=== PATIENT | female | born 1940 | race American Indian/Alaskan Native ===

== ENCOUNTER 2020-06-08 09:24 | Emergency (ER) | payer MEDICARE ==
[2020-06-08 11:19] LABS: Basophils % (Auto) 0.7 % (0.0-1.8); Eosinophils # (Auto) 0.1 K/mm3 (0.0-0.4); Eosinophils % (Auto) 2.3 % (0.0-4.3); Hemoglobin 13.2 gm/dl (10.1-14.3); Lymphocytes # (Auto) 1.1 K/mm3 (1.2-5.4); Lymphocytes % (Auto) 28.5 % (13.4-35.0); Mean Corpuscular HGB Conc 33 % (30-34); Mean Corpuscular Volume 88 fl (79-97); Monocytes # (Auto) 0.3 K/mm3 (0.0-0.8); Monocytes % (Auto) 8.9 % (0.0-7.3); Platelet Count 220 K/mm3 (140-440); Red Blood Count 4.53 M/mm3 (3.65-5.03); Red Cell Distribution Width 14.5 % (13.2-15.2)
[2020-06-08] MEDS ORDERED: cloNIDine 0.2 MG TAB PO ONE (11:46)
--- NOTE | 2020-06-08 11:55 | Emergency Department Report ---
ED General Adult HPI - General Chief complaint: High BP Stated complaint: HBP/DIZZY Time Seen by Provider: 06/08/20 11:12 Source: patient, family Mode of arrival: Wheelchair Limitations: Altered Mental Status - History of Present Illness Initial comments: 79-year-old female with a past medical history of Alzheimer's dementia and hypertension presents to the hospital with her daughter for uncontrolled blood pressure. Patient lives with her daughter and daughter was able to provide history of present illness due to patient's underlying dementia. Patient is alert however, agitated insisting her name is Do Gutierrez. She denies any physical complaints and states she feels fine. Daughter states that they went to the [facility] this morning so that Ms. Lei could receive her monthly Invega shot. She also has been more agitated and belligerent lately and therefore additional p.o. Haldol and Cogentin was prescribed by the treating mental health provider. During her triage it was noted that her blood pressure was elevated and therefore it was advised that patient come to the ER for evaluation. Patient has been off of blood pressure medications for approximately 6 months but this is the highest her blood pre ssure has been during this time. Other than psychiatric issues daughter confirms patient is currently at her baseline. Severity scale (0 -10): 0 - Related Data Home Medications Medication Instructions Recorded Confirmed Last Taken LORazepam [Ativan] 0.5 mg PO Q6H PRN 05/27/14 09/17/14 Unknown amLODIPine [Norvasc] 5 mg PO DAILY 05/27/14 09/17/14 Unknown risperiDONE [RisperDAL] 1 mg PO DAILY 05/27/14 09/17/14 Unknown risperiDONE [Risperdal] 2 mg PO QPM 05/27/14 09/17/14 Unknown Previous Rx's Medication Instructions Recorded Last Taken Type Amlodipine Besylate [Norvasc] 10 mg PO DAILY #30 tablet 06/08/20 Unknown Rx Allergies Allergy/AdvReac Type Severity Reaction Status Date / Time No Known Allergies Allergy Verified 10/09/13 11:39 ED Review of Systems ROS: Stated complaint: HBP/DIZZY Other details as noted in HPI Comment: All other systems reviewed and negative ED Past Medical Hx - Past Medical History Previous Medical History?: Yes Hx Hypertension: Yes Hx Psychiatric Treatment: Yes Additional medical history: Alzheimer's, appendectomey,left knee and hip replacement - Surgical History Past Surgical History?: Yes Hx Appendectomy: Yes Additional Surgical History: left knee and hip - Social History Smoking Status: Current Every Day Smoker - Medications Home Medications: Home Medications Medication Instructions Recorded Confirmed Last Taken Type LORazepam [Ativan] 0.5 mg PO Q6H PRN 05/27/14 09/17/14 Unknown History amLODIPine [Norvasc] 5 mg PO DAILY 05/27/14 09/17/14 Unknown History risperiDONE [RisperDAL] 1 mg PO DAILY 05/27/14 09/17/14 Unknown History risperiDONE [Risperdal] 2 mg PO QPM 05/27/14 09/17/14 Unknown History Amlodipine Besylate [Norvasc] 10 mg PO DAILY #30 tablet 06/08/20 Unknown Rx ED Physical Exam - General Limitations: Altered Mental Status - Other Other exam information: General: No acute distress Head: Atraumatic Eyes: normal appearance ENT: Moist mucous membranes Neck: Normal appearance, no midline tenderness Chest: Clear to auscultation bilaterally CV: Regular rate and rhythm Abdomen: Soft, normal bowel sounds, nontender, nondistended, no rebound or guarding Back: Normal inspection Extremity: Normal inspection, full range of motion Neuro: Alert, no facial asymmetry, speech clear, no gross motor sensory deficit Psych: Appropriate behavior Skin: No rash ED Course Vital Signs 06/08/20 06/08/20 06/08/20 09:28 11:24 11:26 Temperature 97.8 F Pulse Rate 100 H 88 Respiratory 18 17 18 Rate Blood Pressure Blood Pressure 227/117 [Left] Blood Pressure 217/126 227/117 [Right] O2 Sat by Pulse 100 98 Oximetry 06/08/20 06/08/20 06/08/20 11:29 11:30 11:46 Temperature Pulse Rate 88 83 Respiratory 19 18 19 Rate Blood Pressure Blood Pressure [Left] Blood Pressure [Right] O2 Sat by Pulse 99 98 98 Oximetry 06/08/20 06/08/20 06/08/20 11:58 12:00 12:15 Temperature Pulse Rate 88 83 75 Respiratory 13 17 Rate Blood Pressure 204/117 212/110 222/109 Blood Pressure [Left] Blood Pressure [Right] O2 Sat by Pulse 98 99 Oximetry 06/08/20 06/08/20 06/08/20 12:38 12:46 13:00 Temperature Pulse Rate 79 70 72 Respiratory 19 20 20 Rate Blood Pressure 222/109 175/100 150/92 Blood Pressure [Left] Blood Pressure [Right] O2 Sat by Pulse 100 100 Oximetry 06/08/20 06/08/20 06/08/20 13:15 13:53 14:00 Temperature Pulse Rate 69 73 88 Respiratory 21 19 15 Rate Blood Pressure 146/86 154/75 Blood Pressure 154/75 [Left] Blood Pressure [Right] O2 Sat by Pulse 100 99 Oximetry 06/08/20 06/08/20 06/08/20 14:30 14:46 15:00 Temperature Pulse Rate 69 67 Respiratory 18 15 Rate Blood Pressure 154/75 172/87 163/87 Blood Pressure [Left] Blood Pressure [Right] O2 Sat by Pulse 80 L Oximetry 06/08/20 06/08/20 15:16 15:30 Temperature Pulse Rate 69 69 Respiratory 17 21 Rate Blood Pressure 130/85 142/86 Blood Pressure [Left] Blood Pressure [Right] O2 Sat by Pulse Oximetry ED Medical Decision Making - Lab Data Result diagrams: 06/08/20 10:57 06/08/20 15:15 Lab Results 06/08/20 06/08/20 06/08/20 Range/Units 10:57 10:57 15:15 WBC 3.8 L (4.5-11.0) K/mm3 RBC 4.53 (3.65-5.03) M/mm3 Hgb 13.2 (10.1-14.3) gm/dl Hct 40.0 (30.3-42.9) % MCV 88 (79-97) fl MCH 29 (28-32) pg MCHC 33 (30-34) % RDW 14.5 (13.2-15.2) % Plt Count 220 (140-440) K/mm3 Lymph % (Auto) 28.5 (13.4-35.0) % [place] % (Auto) 8.9 H (0.0-7.3) % Eos % (Auto) 2.3 (0.0-4.3) % Baso % (Auto) 0.7 (0.0-1.8) % Lymph # (Auto) 1.1 L (1.2-5.4) K/mm3 [place] # (Auto) 0.3 (0.0-0.8) K/mm3 Eos # (Auto) 0.1 (0.0-0.4) K/mm3 Baso # (Auto) 0.0 (0.0-0.1) K/mm3 Seg Neutrophils % 59.6 (40.0-70.0) % Seg Neutrophils # 2.2 (1.8-7.7) K/mm3 Sodium TNR 141 Potassium TNR 3.5 L Chloride TNR 106.9 Carbon Dioxide TNR 30 Anion Gap TNR 8 BUN TNR 12 Creatinine TNR 0.7 Estimated GFR TNR > 60 BUN/Creatinine Ratio TNR 17 Glucose TNR 93 Calcium TNR 8.7 Total Bilirubin TNR 0.30 AST TNR 14 ALT TNR 7 Alkaline Phosphatase TNR 46 Troponin T TNR < 0.010 Total Protein TNR 6.5 Albumin TNR 3.4 L Albumin/Globulin Ratio TNR 1.1 Urine Color (Yellow) Urine Turbidity (Clear) Urine pH (5.0-7.0) Ur Specific [place] (1.003-1.030) Urine Protein (Negative) mg/dL Urine Glucose (UA) (Negative) mg/dL Urine Ketones (Negative) mg/dL Urine Blood (Negative) Urine Nitrite (Negative) Urine Bilirubin (Negative) Urine Urobilinogen (<2.0) mg/dL Ur Leukocyte Esterase (Negative) Urine WBC (Auto) (0.0-6.0) /HPF Urine RBC (Auto) (0.0-6.0) /HPF U Epithel Cells (Auto) (0-13.0) /HPF Urine Bacteria (Auto) (Negative) /HPF Urine Mucus /HPF 06/08/20 Range/Units Unknown WBC (4.5-11.0) K/mm3 RBC (3.65-5.03) M/mm3 Hgb (10.1-14.3) gm/dl Hct (30.3-42.9) % MCV (79-97) fl MCH (28-32) pg MCHC (30-34) % RDW (13.2-15.2) % Plt Count (140-440) K/mm3 Lymph % (Auto) (13.4-35.0) % [place] % (Auto) (0.0-7.3) % Eos % (Auto) (0.0-4.3) % Baso % (Auto) (0.0-1.8) % Lymph # (Auto) (1.2-5.4) K/mm3 [place] # (Auto) (0.0-0.8) K/mm3 Eos # (Auto) (0.0-0.4) K/mm3 Baso # (Auto) (0.0-0.1) K/mm3 Seg Neutrophils % (40.0-70.0) % Seg Neutrophils # (1.8-7.7) K/mm3 Sodium Potassium Chloride Carbon Dioxide Anion Gap BUN Creatinine Estimated GFR BUN/Creatinine Ratio Glucose Calcium Total Bilirubin AST ALT Alkaline Phosphatase Troponin T Total Protein Albumin Albumin/Globulin Ratio Urine Color Yellow (Yellow) Urine Turbidity Clear (Clear) Urine pH 7.0 (5.0-7.0) Ur Specific [place] 1.012 (1.003-1.030) Urine Protein <15 mg/dl (Negative) mg/dL Urine Glucose (UA) Neg (Negative) mg/dL Urine Ketones Neg (Negative) mg/dL Urine Blood Sm (Negative) Urine Nitrite Neg (Negative) Urine Bilirubin Neg (Negative) Urine Urobilinogen < 2.0 (<2.0) mg/dL Ur Leukocyte Esterase Neg (Negative) Urine WBC (Auto) < 1.0 (0.0-6.0) /HPF Urine RBC (Auto) 4.0 (0.0-6.0) /HPF U Epithel Cells (Auto) 4.0 (0-13.0) /HPF Urine Bacteria (Auto) 1+ (Negative) /HPF Urine Mucus Few /HPF - EKG Data -: EKG Interpreted by Tn EKG shows normal: sinus rhythm, ST-T waves (No STEMI) Rate: normal - Radiology Data Radiology results: report reviewed - Medical Decision Making Patient received Clonidine with improvement in bp. For some reason patient had multiple blood draws because she continued to have repeated hemolysis of her blood work. Finally labs reveal normal labs with exception of mild hypokalemia. P.o. potassium provided. Patient remained asymptomatic during ED stay. She will be discharged on blood pressure medication encouraged to follow-up with PMD Patient's O2 saturation continue to range 98 to 100%. The 80% pulse ox value is not accurate Critical Care Time: No Critical care attestation.: If time is entered above; I have spent that time in minutes in the direct care of this critically ill patient, excluding procedure time. ED Disposition Clinical Impression: Uncontrolled hypertension, Noncompliance with medication regimen Disposition: DC-01 TO HOME OR SELFCARE Is pt being admited?: No Does the pt Need Aspirin: No Condition: Stable Instructions: Hypertension (ED), Hypertension, Adult Additional Instructions: Take the medication as prescribed. Follow-up with your doctor or doctor/clinic provided. Return if symptoms worsen as indicated by your discharge instructions. Prescriptions: Amlodipine Besylate [Norvasc] 10 mg PO DAILY #30 tablet Referrals: PRIMARY MD KAELYN [Primary Care Provider] - 3-5 Days MARIPOSA BOLES MD [Staff Physician] - 3-5 Days Time of Disposition: 16:19
[2020-06-08 13:36] LABS: Bacteria,Urine 1+ /HPF (Negative); Bilirubin,Urine NEG (Negative); Blood,Urine SM (Negative); Color,Urine Yellow (Yellow); Mucus,Urine FEW /HPF; Protein,Urine <15 mg/dL mg/dL (Negative); Urobilinogen,Urine < 2.0 mg/dL (<2.0); WBC,Urine < 1.0 /HPF (0.0-6.0)
[2020-06-08 13:42] LABS: Alanine Aminotransferase TNR units/L (7-56); Albumin TNR g/dL (3.9-5)
[2020-06-08 13:58] LABS: BUN/Creatinine Ratio TNR; Blood Urea Nitrogen TNR mg/dL (7-17); Calcium TNR mg/dL (8.4-10.2)
[2020-06-08 15:41] LABS: Alanine Aminotransferase 7 units/L (7-56); Albumin 3.4 g/dL (3.9-5); Blood Urea Nitrogen 12 mg/dL (7-17); Calcium 8.7 mg/dL (8.4-10.2); Hemolysis Index 2
[2020-06-08 15:55] LABS: BUN/Creatinine Ratio 17
[2020-06-08] MEDS ORDERED: POTASSIUM CHLORIDE ER 20 MEQ TAB PO ONE (16:00)
[2020-06-08 16:49] VITALS: BP 166/109
== END 2020-06-08 17:10 | disposition home or self-care (01) ==
LOC: ED 09:24
DX: I10 Essential (primary) hypertension (principal); Z91.14 Patient's other noncompliance with medication regimen; F17.200 Nicotine dependence, unspecified, uncomplicated; Z90.49 Acquired absence of other specified parts of digestive tract; Z98.890 Other specified postprocedural states; Z79.899 Other long term (current) drug therapy
CPT/HCPCS: 36415; 80053; 81001; 84484; 85025; 93005